=== PATIENT | male | born 1940 | race Hispanic/Latino ===

== ENCOUNTER 2021-05-02 19:20 | Emergency (ER) | payer MEDICARE, MEDICAID ==
[2021-05-02] MEDS ORDERED: AMOXicillin 250 MG CAP ONE (20:43)
== END 2021-05-02 21:03 | disposition home or self-care (01) ==
LOC: MADERS 19:20
DX: H60.92 Unspecified otitis externa, left ear (principal); H72.92 Unspecified perforation of tympanic membrane, left ear
CPT/HCPCS: 99283